=== PATIENT | female | born 1990 | race Caucasian/White ===

== ENCOUNTER 2022-03-19 22:22 | Observation (INO) | payer MEDICAID, OTHER ==
[2022-03-19] MEDS ORDERED: Sodium Chloride 0.9% 10 ML Syringe FLUSH PRN (22:35)
[2022-03-19 23:10] LABS: ESTIMATED GFR 70 mL/min (>60)
[2022-03-19] MEDS ORDERED: Sodium Chloride 0.9% 50 ML IV STA (23:28)
[2022-03-19] MEDS: Iopamidol 612 MG/ML 100 ML Bottle IV STA (23:35)
[2022-03-19 23:45] LABS: CORONAVIRUS COVID-19 NAA NEGATIVE (NEGATIVE)
[2022-03-20] MEDS ORDERED: Ertapenem 1 GM in Sodium Chloride 0.9% 50 ML IV ONE (00:55)
[2022-03-20] MEDS ORDERED: Ondansetron 4 MG/2 ML SDV IV PRN (01:04)
[2022-03-20] MEDS ORDERED: Acetaminophen 325 MG Tab PO PRN (01:04)
[2022-03-20] MEDS ORDERED: Acetaminophen/HYDROcodone 325-5 MG Tab PO PRN (01:04)
[2022-03-20] MEDS: Sodium Chloride 0.9% 1,000 ML IV SCH ×2 (01:51→13:49)
[2022-03-20] MEDS ORDERED: Bupivacaine 0.5%/EPINEPHrine 1:200,000 50 ML MDV ONE (06:27)
[2022-03-20] MEDS ORDERED: Rocuronium 50 MG/5 ML Vial ONE (06:49)
[2022-03-20] MEDS ORDERED: Glycopyrrolate 0.2 MG/ML 5 ML MDV ONE (06:49)
[2022-03-20] MEDS ORDERED: Neostigmine Methylsulfate 1 MG/ML 5 ML Syringe ONE (06:49)
[2022-03-20] MEDS ORDERED: Propofol 200 MG/20 ML SDV ONE (06:49)
[2022-03-20] MEDS ORDERED: Ondansetron 4 MG/2 ML SDV ONE (06:49)
[2022-03-20] MEDS ORDERED: Dexamethasone 4 MG/ML SDV ONE (06:49)
[2022-03-20] MEDS ORDERED: Succinylcholine 200 MG/10 ML MDV ONE (06:49)
[2022-03-20] MEDS ORDERED: fentaNYL 250 MCG/5 ML SDV ONE (06:51)
[2022-03-20] MEDS ORDERED: Lactated Ringers 1,000 ML ONE (07:24)
[2022-03-20] MEDS: oxyCODONE 5 MG Tab PO PRN ×2 (08:46→13:48)
== END 2022-03-20 17:10 | disposition home or self-care (01) ==
LOC: JP.ED 22:22 → JP.MS 03-20 01:08
PROVIDERS: ADMIT Student in an Organized Health Care Education/Training Program; ATTEND Student in an Organized Health Care Education/Training Program
DX: K35.33 Acute appendicitis with perforation, localized peritonitis, and gangrene, with abscess (principal); F41.9 Anxiety disorder, unspecified; F32.A Depression, unspecified; Z79.899 Other long term (current) drug therapy; Z20.822 Contact with and (suspected) exposure to COVID-19; Z88.0 Allergy status to penicillin; Z86.16 Personal history of COVID-19
CPT/HCPCS: 0241U; 36415; 44970; 74177; 80053; 81001; 83605; 83690; 84703; 85025; 88302; 96361; 96365; 99285; A9270; G0378; J0330; J1100; J1335; J2405; J2704; J2710; J3010; J3490; J7030; J7120; Q9967